=== PATIENT | male | born 1945 | race Caucasian/White ===

== ENCOUNTER → 2024-08-11 08:21 | Outpatient (REF) | payer MEDICARE, SELFPAY | LOC: RAD 08:21 | PROVIDERS: ATTENDING PHYSICIAN Internal Medicine | DX: I73.9 Peripheral vascular disease, unspecified (principal) | CPT/HCPCS: 75635; Q9967 ==

== ENCOUNTER 2024-10-16 17:59 | Emergency (ER) | payer MEDICARE, OTHER, SELFPAY ==
[2024-10-16 18:00] VITALS: BMI 31.7
[2024-10-16 18:02] VITALS: BP 110/74
[2024-10-16 18:04] VITALS: BP 110/74
--- NOTE | 2024-10-16 18:15 | ED.GENMED ---
History of Present Illness
General
Chief Complaint: Overdose Unintentional
Source: patient and ambulance crew
Time Seen by Provider: 10/16/24 18:00
History of Present Illness
History of Present Illness:
79-year-old male presents via EMS from [facility] after being found to be 'unconscious' after receiving a dose of Ativan. Patient was alert and oriented upon EMS arrival. He has no complaints upon my exam however he is a poor
historian. He denies headache nausea lethargy chest pain shortness of breath or fever.
Phy Exam
Physical Exam
Physical Exam:
General: Unkempt male no acute respiratory distress
HEENT: Normocephalic atraumatic mucosa moist
Heart: Regular rate and rhythm no murmurs
Lungs: CTA bilaterally
Abd: soft, nontender, nondistended
Ext: no cyanosis or edema
Neuro: alert, oriented to person only. No facial asymmetry
Course
Orders/Labs/Results
Orders:
Orders
10/16/24 18:21
CR Chest - 2 Views Urgent
Comment:
Reason For Exam: weakness
10/16/24 18:49
COVID-19 Antigen Urgent
Source: Nasal Swab
Complete Blood Count/With Diff Urgent
Comprehensive Metabolic Panel Urgent
Urinalysis Reflex To Culture Urgent
Date Specimen was Collected: 10/16/24
Time Specimen was Collected: 18:29
Urine Microscopic Reflex Cult Urgent
Influenza A+B Rapid Molecular Urgent
[facility]INA Source: Nasal Swab
Specimen Description:
Urine Culture Urgent
BRINA Source: U
Specimen Description:
Date Specimen was Collected: 10/16/24
Time Specimen was Collected: 18:29
Abnormal Lab Results
10/16/24
18:49
WBC 3.4 L 10^3/uL
(4.8-10.8)
RBC 4.54 L 10^6/uL
(4.70-6.10)
Plt Count 125 L 10^3/uL
(130-400)
MPV 10.7 H fL
(7.4-10.4)
Absolute Lymphs (auto) 0.5 L 10^3/uL
(1.2-3.4)
Lymphocytes % 15.5 L %
(20.5-51.1)
Chloride 109 H mmol/L
(98-107)
BUN 22 H mg/dl
(9-20)
Glucose 103 H mg/dl
(70-99)
Total Protein 6.2 L g/dl
(6.3-8.2)
Albumin 3.4 L g/dl
(3.5-5.0)
Urine Bacteria (Reflex) Moderate A
(Negative)
Urine Albumin (Reflex) 2+ A
(Neg - Trace)
10/16/24 18:49
10/16/24 18:49
Vital Signs
Initial and Last Documented VS:
Initial Vital Signs
Temp Pulse Resp BP Pulse Ox
98.5 F 81 18 110/74 95
10/16/24 18:02 10/16/24 18:02 10/16/24 18:02 10/16/24 18:02 10/16/24 18:02
Last Documented Vital Signs
Temp Pulse Resp BP Pulse Ox
98.5 F 84 16 103/74 99
10/16/24 18:02 10/16/24 20:00 10/16/24 20:00 10/16/24 20:00 10/16/24 20:00
MDM/Problems Addressed
Differential Diagnosis Includes:
EMS report was he had he was unconscious after receiving Ativan however I spoke with the nurse at the facility. There was no documentation of him being unresponsive. There was concern on family's behalf as he has been getting more weak over the
past 2 to 3 days. No fever here on assessment but will check basic labs and infectious sources.
*Critical Care Note
Total Time (30-74mins, 75-104mins- exclusive of procedures): Not Applicable
Update Note
Update Note:
Patient evaluated and reviewed studies. Chest x-ray negative moderate bacteria in the urine but no other sign of infection. Will wait for culture with stable vital signs afebrile. Labs reviewed without significant finding. COVID and flu
negative. No indication for admission he is alert here we will send him back to facility
ED Attending Note
-
Portions of this chart may have been created with voice recognition software.� Occasional wrong word or��sound alike� substitutions may have occurred due to the inherent limitations of voice recognition software.
Discharge Plan
Departure
Patient Disposition: Home (Routine Discharge)
Date of Disposition: 10/16/24
Time of Disposition: 21:12
Patient with high blood pressure during this ER visit?: No
Discharge Problem:
Weakness
Instructions: Weakness
Referrals:
Hector Ryder MD [Family Provider] -
Activity Restrictions/Additional Instructions:
Return if needed.
Interventions
Interventions:
*Risk Screen - Suicide Last Done: 10/16/24 18:02
*General Assessment Last Done: 10/16/24 18:02
*Neglect/Abuse Screening Last Done: 10/16/24 18:02
ED- Fall Risk Assessment Last Done: 10/16/24 18:02
ED- Cardiac Assessment Last Done: 10/16/24 18:54
ED- Neurological Assessment Last Done: 10/16/24 18:54
ED-Psychological Assessment Last Done: 10/16/24 18:02
ED- Pulmonary Assessment Last Done: 10/16/24 18:54
Discharge Date and Time
Print Language: CROATIAN
[2024-10-16 18:30] VITALS: BP 105/76
[2024-10-16 19:00] VITALS: BP 91/70
[2024-10-16 19:05] LABS: Urine Albumin 2+ (Neg - Trace); Urine Bilirubin Negative (Negative); Urine Character Cloudy (Clear); Urine Color Yellow; Urine Glucose Negative (Negative); Urine Ketone Negative (Negative); Urine Leukocyte Negative (Negative); Urine Nitrite Negative (Negative); Urine Occult Blood Negative (Negative); Urine Urobilinogen Negative (Neg - 1+)
[2024-10-16 19:08] LABS: % Basophils 0.3 % (0-2); % Eosinophils 2.1 % (0-6); % Immature Granulocytes 0.3 % (0-0.5); % Lymphocytes 15.5 % (20.5-51.1); % Monocytes 8.5 % (1.7-9.3); % Neutrophils 73.3 % (42.2-75.2); Absolute Eosinophils 0.1 10^3/uL (0-0.7); Absolute Lymphocytes 0.5 10^3/uL (1.2-3.4); Absolute Monocytes 0.3 10^3/uL (0.1-0.6); Absolute Neutrophils 2.5 10^3/uL (1.4-6.5); Hematocrit 39.8 % (39.0-52.0); Hemoglobin 13.4 g/dL (13.0-18.0); Mean Corp Hgb Conc. 33.7 g/dL (33.0-37.0); Mean Corpuscular Hgb 29.5 pg (27.0-31.0); Mean Corpuscular Volume 87.7 fL (80.0-94.0); Mean Platelet Volume 10.7 fL (7.4-10.4); Nucleated Red Blood Cells % 0 % (-); Platelet Count 125 10^3/uL (130-400); Red Blood Cell Count 4.54 10^6/uL (4.70-6.10); Red Cell Dist. Width 13.4 % (11.5-14.5); White Blood Cell Count 3.4 10^3/uL (4.8-10.8)
[2024-10-16 19:16] LABS: ALT (SGPT) < 10 U/L (0-50); AST (SGOT) 17 U/L (17-59); Albumin 3.4 g/dl (3.5-5.0); Alkaline Phosphatase 110 U/L (38-126); Blood Urea Nitrogen 22 mg/dl (9-20); Calcium 8.9 mg/dl (8.4-10.2); Carbon Dioxide 26 mmol/L (22-30); Chloride 109 mmol/L (98-107); Estimated Creatinine Clearance 78 ml/min; Glucose 103 mg/dl (70-99); Potassium 3.9 mmol/L (3.5-5.1); Sodium 142 mmol/L (135-145); Total Bilirubin 1.3 mg/dl (0.2-1.3); Total Protein 6.2 g/dl (6.3-8.2); eGFR > 60.00
[2024-10-16 19:20] LABS: COVID-19 Antigen Negative (Negative)
[2024-10-16 20:00] VITALS: BP 103/74
[2024-10-16 20:30] LABS: Urine Squamous Cell >30 /LPF (Few)
[2024-10-16 20:31] LABS: Urine Bacteria Moderate (Negative); Urine Red Blood Cell 0-2 /HPF (0-2)
[2024-10-16 21:49] VITALS: BP 104/86
== END 2024-10-16 21:50 | disposition home or self-care (01) ==
LOC: EMR 17:59
PROVIDERS: Physician Assistant; EMERGENCY PHYSICIAN Emergency Medicine; FAMILY PHYSICIAN Internal Medicine
DX: R53.1 Weakness (principal); R82.71 Bacteriuria
CPT/HCPCS: 99285; 71046; 80053; 81003; 81015; 85025; 87086; 87502; 87811; 93005

== ENCOUNTER → 2025-04-20 09:17 | Outpatient (REF) | payer MEDICARE, OTHER, SELFPAY | LOC: RAD 09:17 | PROVIDERS: ATTENDING PHYSICIAN Surgery Vascular Surgery | DX: I77.9 Disorder of arteries and arterioles, unspecified (principal) | CPT/HCPCS: 93922 ==

== ENCOUNTER 2025-04-22 12:53 | Inpatient (IN) | payer MEDICARE, MEDICAID, SELFPAY ==
[2025-04-22] VITALS (32 sets, daily range): BP systolic 86–161; BP diastolic 57–83; BMI 33.0
[2025-04-22] MEDS: LEVOPHED 250 IV (10:18)
[2025-04-22] MEDS: LEVOPHED IV ×2 (10:18→11:16)
--- NOTE | 2025-04-22 10:20 | ED.GENMED ---
History of Present Illness
General
Chief Complaint: Change in Mental Status
Source: patient and ambulance crew
Exam Limitations: none
Time Seen by Provider: 04/22/25 10:09
Nursing documentation reviewed up to this point in time: agreed with
History of Present Illness
History of Present Illness:
Note:
CHIEF COMPLAINT(S)
Altered mental status and facial droop.
HISTORY OF PRESENT ILLNESS
The patient is a 79-year-old male who was brought in by EMS with altered mental status and facial droop, suggestive of a potential cerebrovascular accident (stroke). Upon EMS arrival, the patient was noted to have significant hypotension with
initial blood pressure readings of 64/40 mmHg. The patient was reportedly bradycardic with a heart rate in the 60s. EMS initiated intravenous fluids and started the patient on norepinephrine at a rate of 0.05 mcg/kg/min to stabilize blood pressure,
which improved the blood pressure to 92% saturation on room air. The patients altered mental status persisted during transport, with a reported [place] Coma Scale of 6. There was an observation of vomitus on the patients facility gown and colostomy
site.
PHYSICAL EXAM
General: Altered mental status, facial droop
Cardiovascular: Hypotension initially 64/40 mmHg, stabilized with norepinephrine.
Neurological: [place] Coma Scale of 6, facial droop noted.
MEDICATIONS
The patient is reportedly on multiple medications including aspirin, acetaminophen, duloxetine, claritin, and tramadol.
PROBLEM LIST
Acute: Altered mental status, hypotension, potential stroke with facial droop
PLAN
- Monitor vital signs, specifically blood pressure and neurological status closely.
- CT scan to evaluate for possible cerebrovascular accident.
- Continue norepinephrine infusion to maintain stable blood pressure.
- Evaluate and manage the patients colostomy site and potential for infection or other complications due to vomitus presence.
- Consider further neurological evaluation following stabilization.
DIFFERENTIAL DIAGNOSIS
The Differential Diagnosis includes, in no particular order and is not limited to:
1. Cerebrovascular accident (stroke)
2. Hypotensive episode
3. Hypoglycemia
4. Sepsis
5. Intracranial hemorrhage
6. Cardiac arrhythmia (e.g., bradycardia)
7. Medication side effect or toxicity
8. Seizure activity
9. Electrolyte imbalance
10. Acute infectious process (e.g., meningitis, encephalitis)
CARE-UPDATE
04/22/25 - 11:22
Patient exhibits hypotension despite negative sepsis markers, supporting evidence of a UTI with a positive result. Cepidem ordered to address infection, while LevaFed administration continues, demonstrating improvement in blood pressure. Plan
involves admission under hospitalist care for further monitoring and management.
CARE-UPDATE
04/22/25 - 13:26
The patients blood pressure improved after administration of IV Leibethid. The patient was able to stabilize somewhat and respond to the treatment by leaning down. IV fluids were administered along with IVepidim. The patient is being admitted for
further evaluation by the hospitalist team. An X-ray revealed no new findings. Continue monitoring for any signs of sepsis.
Disposition:
SUMMARY OF ENCOUNTER
The patient, a 79-year-old male, was brought to the emergency department by EMS with altered mental status and facial droop, indicating a potential cerebrovascular incident. Initial evaluation revealed significant hypotension with blood pressure
readings at 64/40 mmHg and bradycardia with a heart rate in the 60s. EMS initiated intravenous fluids and norepinephrine at a rate of 0.05 mcg/kg/min, improving blood pressure to an acceptable level. The patient had a [place] Coma Scale of 6 upon
evaluation and showed signs of vomiting on his colostomy site. He exhibited symptoms consistent with a urinary tract infection (UTI) and was subsequently diagnosed with sepsis. Treatment included intravenous administration of cephalosporin and
levophed, resulting in improved blood pressure.
DISPOSITION
Admit.
ASSESSMENT
The patient presents with symptoms indicative of sepsis, coupled with a urinary tract infection and initial hypotensive episode.
EMERGENCY TREATMENTS ADMINISTERED
The patient received intravenous cephalosporin (confirmation of exact drug uncertain) and norepinephrine (levophed) to stabilize blood pressure.
MANAGEMENT OF THE PATIENTS CARE WAS DISCUSSED WITH
Hospitalist.
PLAN
The plan includes monitoring vital signs closely with a focus on maintaining stable blood pressure, continued administration of antibiotics for UTI, and norepinephrine for blood pressure stabilization. The patient is admitted for further observation
and management under the care of the hospitalist team.
INDEPENDENT REVIEW OF LABS AND INTERPRETATION OF TESTS
My independent review of urinalysis indicates the presence of a urinary tract infection consistent with sepsis symptoms.
MEDICATION RECONCILIATION
Cephalosporin [exact drug unspecified] administered intravenously.
Norepinephrine administered intravenously for blood pressure stabilization.
MEDICAL DECISION MAKING
- Number and Complexity of Problems Addressed: Chronic conditions affecting care include altered mental status, facial droop, hypotension, and potential sepsis with urinary tract infection. Differential Diagnosis includes cerebrovascular accident,
hypotensive episode, hypoglycemia, sepsis, intracranial hemorrhage, cardiac arrhythmia (bradycardia), medication side effect or toxicity, seizure activity, electrolyte imbalance, and acute infectious processes.
- Data:
Category 1:
Non-emergency department records reviewed.
I reviewed external documents and urinalysis confirming urinary tract infection.
Category 3:
Discussion of management with the hospitalist for continued inpatient care and monitoring.
- Risk:
Decisions regarding diagnostic testing with risks and procedures with intravenous administration of norepinephrine and antibiotics due to sepsis and hypotension. Admission for further care was necessary due to risk of complications.
DIAGNOSIS
Sepsis due to urinary tract infection (UTI) (ICD-10 A41.9).
Hypotension (ICD-10 I95.9).
Phy Exam
Physical Exam
Physical Exam:
.
Sepsis
Sepsis Screening
Sepsis Assessment: Septic Shock
Sepsis Screening: Hypotension, Sustained Hypotension-SBP <90,MAP<65, or SBP decrease 40mmHg or more and Vasopressor support required
Sepsis Screen
Sepsis Screen: Septic Shock
Date: 04/22/25
Time: 12:30
Course
Orders/Labs/Results
Orders:
Orders
04/22/25 Lunch
IDDSI 6 - Soft & Bite Sized
At Your Request: Full Participation
Does patient need a safe tray?: No
Reason for opting out of [employer] order writing: Provider Decision
Liquid Modification: Thin Liquids
Dysphagia Diet: 1999/ CHO Diabetic
04/22/25 10:08
Electrocardiogram (*1) Urgent
Reason for Study: Chest Pain
EKG- Treatment ONCE
04/22/25 10:13
COVID-19 Antigen Urgent
Source: Nasal Swab
Complete Blood Count/With Diff Urgent
Comprehensive Metabolic Panel Urgent
Lactic Acid Urgent
Magnesium Urgent
NT-proBNP Urgent
Troponin I Urgent
Urinalysis Reflex To Culture Urgent
Date Specimen was Collected: 04/22/25
Time Specimen was Collected: 10:10
Urine Microscopic Reflex Cult Urgent
Blood Culture Urgent
[facility] Source: Blood/Venous
Specimen Description:
Date Specimen was Collected: 04/22/25
Time Specimen was Collected: 10:10
Influenza A+B Rapid Molecular Urgent
[facility]INA Source: Nasal Swab
Specimen Description:
Date Specimen was Collected: 04/22/25
Time Specimen was Collected: 10:10
Urine Culture Urgent
BRINA Source: U
Specimen Description:
Date Specimen was Collected: 04/22/25
Time Specimen was Collected: 10:10
04/22/25 10:18
NORepinephrine 4 MG/250 ML [Levophed] 4 mg in 250 ml IV NOW
Initial dose in mcg/min, then titrate:: 4
Titrate to keep:: MAP > 65 mmHg
Titrate by mcg/min:: 1-2 mcg/min
Frequency of titrations (minutes):: 5
Maximum dose in ICU in mcg/min:: 30
Maximum dose in IMU in mcg/min:: 8
Maximum dose in IVU in mcg/min:: 4
Begin to taper infusion when:: Remained at goal for 4hrs
Taper by mcg/min:: 1-2 mcg/min
Frequency of taper (minutes) if patient maintains goal:: 30
Taper to off?: Yes
If infusion off & no longer maintaining goal:: Contact Provider
04/22/25 10:22
CR Chest Portable - 1 View Urgent
Comment:
Reason For Exam: hypotension
Reason Study Needs to be Portable: Patient Unstable
04/22/25 11:18
Cefepime HCl [Maxipime] 2,000 mg IV NOW STA
04/22/25 11:31
Blood Culture Urgent
BRINA Source: Blood/Venous
Specimen Description:
04/22/25 12:36
Admit/Transfer Patient As Directed
Co-Sign Provider:
Level of Care: Inpatient admission
Assign to:: IMU- Intermediate Care
Physician / Group: Erika Dominguez - hospitalists
Diagnosis: shock, UTI
Reason for Hospitalization: shock, UTI - IVF, IV Abx pressors
Expected length of stay greater than two midnights?: Yes
ELOS- Estimated Length of Stay in days: 3
I certify the patient meets the requirements for IP care: Yes
04/22/25 12:37
PRN Pain Medication Management As Directed
May give lesser potent ordered pain med per pt: Yes
preference::
Protocol:: Medication orders for pain may be administered in a
manner that supports deferring to patient preference
when the pt is:
- Requesting an ordered lesser potent pain medication.
Least to most potent pain medications are defined
as: acetaminophen < NSAID < tramadol < opioids
(morphine, oxycodone, hydromorphone).
- Requesting a lesser dose of the same medication IF
ORDERED.
- Requesting a less intrusive route of administration
if both routes are prescribed by the provider (PO <
IV).
04/22/25 12:38
Code Status As Directed
Resuscitation Status: Do not resuscitate
Based on pt advanced directive or healthcare POA form: Yes
DNR Bracelet Application ONCE
04/22/25 12:41
CT Abd/pel Without Iv Or Oral Routine
Comment: UTI, shock
Reason For Exam: evaluate underlying pathology
04/22/25 13:03
0.9% Sodium Chloride 1000 ml [Nss] 1,000 ml IV 100 mls/hr
Acetaminophen [Tylenol] 650 mg PO Q4HPRN PRN MILD PAIN
Bisacodyl [Dulcolax] 10 mg RECTAL [id number] PRN
Dextrose 50%-Water [Dextrose 50% Syringe] 12.5 grams IV [id number] PRN
Docusate W/Senna [Senokot-S] 1 tablet PO BIDPRN PRN
Glucagon [GlucaGen] 1 mg IM PRN PRN
Lorazepam [Ativan] 0.5 mg PO Q6HPRN PRN ANXIETY
Ondansetron Injectable [Zofran] 4 mg IV Q6HPRN PRN
Polyethylene Glycol Powder [Miralax] 17 grams PO DAILYPRN PRN
04/22/25 13:03
Activity As Directed
Activity Level: As Tolerated
Bedside Glucose Monitoring As Directed
Frequency: AC&HS
Additional Instructions:: Change to q6h if pt on TPN, tube feeding or not eating
Vital Signs As Directed
Frequency: Per unit guidelines
Speech Therapy Eval & Treat Routine
Treatment: on dysphagia mech soft diet/thins at [facility]
DX Deep Vein Thrombosis Video Routine
04/22/25 16:00
Buspirone [Buspar] 5 mg PO TID
04/22/25 16:30
Insulin Aspart Corrective Low [Novolog Flexpen-Low Resistance] See Protocol SC AC
04/22/25 18:00
Atorvastatin [Lipitor] 80 mg PO QPM
Enoxaparin Sodium [Lovenox] 40 mg SC QPM
04/22/25 19:00
Cefepime HCl [Maxipime] 2,000 mg IV Q8H
04/22/25 20:00
Gabapentin [Neurontin] 100 mg PO BID
04/22/25 22:00
Finasteride [Proscar] 5 mg PO HS
Lactulose [Duphalac/Chronulac] 20 grams PO HS
Melatonin 3 mg PO HS
04/23/25 06:00
Basic Metabolic Panel IN AM
Complete Blood Count/With Diff IN AM
Glycohemoglobin (HgbA1c) IN AM
04/23/25 08:00
Aspirin Chewable [Low Strength Aspirin] 81 mg PO DAILY
Duloxetine Delayed Release [Cymbalta Delayed Release] 60 mg PO DAILY
Tamsulosin [Flomax] 0.4 mg PO DAILY
04/24/25 06:00
Basic Metabolic Panel IN AM
Complete Blood Count/With Diff IN AM
04/25/25 06:00
Basic Metabolic Panel IN AM
Complete Blood Count/With Diff IN AM
Abnormal Lab Results
04/22/25
10:13
RBC 4.29 L 10^6/uL
(4.70-6.10)
Hgb 12.6 L g/dL
(13.0-18.0)
Hct 37.9 L %
(39.0-52.0)
Chloride 113 H mmol/L
(98-107)
BUN 29 H mg/dl
(9-20)
Total Protein 5.7 L g/dl
(6.3-8.2)
Albumin 3.2 L g/dl
(3.5-5.0)
Ur Occult Blood Reflex 4+ A
(Negative)
Leukocyte Esterase Rfl 3+ A
(Negative)
Urine RBC 16-20 A /HPF
(0-2)
Urine WBC (Reflex) 40-50 A /HPF
(0-5)
Urine Bacteria (Reflex) Many A
(Negative)
Urine Albumin (Reflex) 3+ A
(Neg - Trace)
04/22/25 10:13
04/22/25 10:13
Vital Signs
Initial and Last Documented VS:
Initial Vital Signs
Pulse Resp
59 19
04/22/25 10:09 04/22/25 10:09
Last Documented Vital Signs
Temp Pulse Resp BP Pulse Ox
98.1 F 61 15 115/68 96
04/22/25 10:35 04/22/25 12:34 04/22/25 12:34 04/22/25 13:02 04/22/25 12:34
*Pulse Oximetry
Patient hypoxic: no
*Critical Care Note
Total Time (30-74mins, 75-104mins- exclusive of procedures): 35
comment:
Critical care statement: A total of 35 minutes of critical care time was provided for this patient. This includes management of unstable vital signs, evaluation of the patient at bedside, reviewing the patient's pertinent medical records, discussion
with consultants, review of old EKGs and review of pertinent medical records. This time with separate from time utilized to perform the aforementioned documented procedures
ED Attending Note
-
Portions of this chart may have been created with voice recognition software.� Occasional wrong word or��sound alike� substitutions may have occurred due to the inherent limitations of voice recognition software.
Discharge Plan
Departure
Patient Disposition: Admit
Date of Disposition: 04/22/25
Time of Disposition: 11:18
Admit to: IMU
Presentation/result/management discussed w/ accepting MD/DO: Hospitalist
Patient with high blood pressure during this ER visit?: Yes
Condition: Fair
Discharge Problem:
Acute UTI (urinary tract infection), Acute hypotension, Sepsis
Interventions
Interventions:
*Risk Screen - Suicide Last Done: 04/22/25 10:35
*General Assessment Last Done: 04/22/25 10:35
*Neglect/Abuse Screening Last Done: 04/22/25 10:35
*ED- Fall Risk Assessment Last Done: 04/22/25 10:35
*ED COVID-19 Vaccine History Last Done: 04/22/25 10:35
ED- Pulmonary Assessment Last Done: 04/22/25 10:35
ED-Psychological Assessment Last Done: 04/22/25 10:35
ED- Neurological Assessment Last Done: 04/22/25 10:35
ED- Cardiac Assessment Last Done: 04/22/25 10:35
ED Swallowing Screen Last Done: 04/22/25 10:35
[2025-04-22 10:27] LABS: Hematocrit 37.9 % (39.0-52.0); Hemoglobin 12.6 g/dL (13.0-18.0); Mean Corp Hgb Conc. 33.2 g/dL (33.0-37.0); Mean Corpuscular Volume 88.3 fL (80.0-94.0); Nucleated Red Blood Cells % 0 % (-); Platelet Count 155 10^3/uL (130-400); Red Cell Dist. Width 14.1 % (11.5-14.5)
[2025-04-22 10:36] LABS: Urine Character Cloudy (Clear)
[2025-04-22 10:52] LABS: ALT (SGPT) 13 U/L (0-50); AST (SGOT) 18 U/L (17-59); Albumin 3.2 g/dl (3.5-5.0); Alkaline Phosphatase 73 U/L (38-126); Blood Urea Nitrogen 29 mg/dl (9-20); Calcium 8.6 mg/dl (8.4-10.2); Carbon Dioxide 25 mmol/L (22-30); Chloride 113 mmol/L (98-107); Estimated Creatinine Clearance 55 ml/min; Glucose 98 mg/dl (70-99); Magnesium 1.9 mg/dl (1.6-2.3); Potassium 4.3 mmol/L (3.5-5.1); Sodium 142 mmol/L (135-145); Total Protein 5.7 g/dl (6.3-8.2); Troponin I < 0.012 ng/ml; eGFR > 60.00
[2025-04-22 10:54] LABS: COVID-19 Antigen Negative (Negative)
[2025-04-22 10:59] LABS: Urine Squamous Cell 16-20 /LPF (Few); Urine Urothelial Cell 0-2 /LPF (FEW)
[2025-04-22 11:00] LABS: Urine Red Blood Cell 16-20 /HPF (0-2); Urine White Cell 40-50 /HPF (0-5)
[2025-04-22] MEDS: MAXIPIME 2000 MG IV ×2 (11:53→22:02)
--- NOTE | 2025-04-22 12:24 | CM ---
Initial assessment completed in ED. Patient presenting w/ change in mental status. Patient admitted from [facility].
Spoke w/ [facility], confirmed that patient is a LTC resident w/ a bed hold. Patient is total care, bedbound, ever lift for transfers.
PCP is Dr. Ryder
[facility]armacy: [facility]
Patient will need ambulance transport at d/c
Plan: Return to [facility]
--- NOTE | 2025-04-22 12:24 | HPS.HSE ---
Family Physician
-
Family Physician: INTERVIEWE UNKNOWN - PT NOT
Chief Complaint
-
hypotension
History of Present Illness
79 y/o M, hx of CAD, PVD, hx of PE, type 2 DM, HLD presenting from [facility] with transient change in mental status and hypotension to 60s. EMS was called and placed patient on Levophed. He was evaluated in ER and found to have UTI And
concern for early sepsis; patient was more alert and did report burning with urination. No other complaints. Currently Levophed at 1 mcg/min. Cefepime given. Patient admitted.
Medical History
Past Medical History
Past Medical History: Reports Other ( CAD, PVD, hx of PE, type 2 DM, HLD, hx of CVA, HTN)
Past Surgical History: Reports None
Social History
Tobacco: Non-smoker
Alcohol: None
Drug: None
Personal:
Living: Prison
Employment: Disabled
Family History
Family History: Not pertinent
Allergies / Home Medications
Allergies reflects when Allergies were last updated in [facility].
Home Medications with original date entered in [facility]
Allergy/Medication List:
Allergies
Allergy/AdvReac Type Severity Reaction Status Date / Time
No Known Allergies Allergy Unverified 10/16/24 18:09
Home Medications
acetaminophen 325 mg tablet (Tylenol) 650 mg PO Q4HPRN PRN MILD PAIN 04/22/25
ascorbic acid (vitamin C) 500 mg tablet (Vitamin C) 500 mg PO BID Supplement 04/22/25
aspirin 81 mg chewable tablet 81 mg PO DAILY Heart Disease/Condition 04/22/25
atorvastatin 80 mg tablet (Lipitor) 80 mg PO QPM High Cholesterol 04/22/25
bisacodyl 10 mg rectal suppository (Dulcolax (bisacodyl)) 10 mg NE DAILYPRN PRN IF NO BM AFTR MOM 04/22/25
buspirone 5 mg tablet 5 mg PO TID Mental Health/Anxiety 04/22/25
cholecalciferol (vitamin D3) 50 mcg (2,000 unit) tablet (Vitamin D3) 50 mcg PO DAILY Supplement 04/22/25
duloxetine 60 mg capsule,delayed release 60 mg PO DAILY Mental Health/Anxiety 04/22/25
finasteride 5 mg tablet 5 mg PO HS bph 04/22/25
gabapentin 100 mg capsule 100 mg PO BID Pain 04/22/25
ibuprofen 800 mg tablet 800 mg PO [id number] PRN ARTHRITIC PAIN 04/22/25
lactulose 10 gram/15 mL oral solution 20 g PO HS Constipation 04/22/25
loratadine 10 mg tablet (Claritin) 10 mg PO DAILY Allergies 04/22/25
lorazepam 0.5 mg tablet 0.5 mg PO Q6HPRN PRN ANXIETY 04/22/25
magnesium hydroxide 400 mg/5 mL oral suspension (Milk of Magnesia) 2,400 mg PO DAILYPRN PRN IF NO BM BY 3RD DAY 04/22/25
melatonin 3 mg tablet 3 mg PO HS Sleep 04/22/25
omega-3 fatty acids-fish oil 684 mg-1,200 mg capsule,delayed release 1 cap PO DAILY Supplement 04/22/25
sodium phosphates 19 gram-7 gram/118 mL enema (Fleet Enema) 118 ml NE [id number] PRN IF NO BM AFTR DULOLCAX 04/22/25
tamsulosin 0.4 mg capsule (Flomax) 0.4 mg PO DAILY Urinary Issue 04/22/25
tramadol 50 mg tablet 50 mg PO BIDPRN PRN MODERATE PAIN 04/22/25
Review of Systems
-
A 12 point ROS was completed and negative except as noted: Yes
Physical Exam
Vital Signs
Vital Signs
Temp Pulse Resp BP Pulse Ox
98.1 F 50 16 123/66 96
04/22/25 10:35 04/22/25 10:35 04/22/25 10:35 04/22/25 11:23 04/22/25 10:35
Physical Exam
General: No Apparent Distress
HEENT: NormoCephalic and Anicteric
Respiratory: Clear; No Wheezes
Cardiac: S1/S2 and Regular Rhythm
GI: Soft
Neuro: AO x 3 and Other (residual Left sided weakness)
Psych: Calm
Laboratory Results
-
04/22/25 10:13
04/22/25 10:13
Laboratory Results
Lactic Acid 1.0 mmol/L (0.7-2.0) 04/22/25 10:13
Total Bilirubin 0.8 mg/dl (0.2-1.3) 04/22/25 10:13
AST 18 U/L (17-59) 04/22/25 10:13
ALT 13 U/L (0-50) 04/22/25 10:13
Alkaline Phosphatase 73 U/L (38-126) 04/22/25 10:13
Troponin I < 0.012 ng/ml 04/22/25 10:13
Data Reviewed
-
Lab Data: Labs Reviewed by me
Impression/Plan
-
Assessment:
Shock, suspected early sepsis picture (although sepsis biomarkers negative) vs hypovolemic
UTI in Male
- continue IVF for suspected sepsis protocol
- on Levophed; wean as able. IMU admit.
- Cefepime, day 1 pending urine/blood cultures
- CT abd/pelv noncontrast to evaluate underlying pathology
Hx of ASCVD (CAD, PVD, hx of CVA with asphasia, weakness)
Hx of Essential HTN
- continue aspirin/Statin
- hx of dysphagia - ST eval
Type 2 DM
- diet controlled
- SSI coverage
- check A1c
hx of PE
HLD - statin
Anxiety/depression
- continue home psych meds
BPH - continue meds
DVT ppx: Lovenox
Code: DNR/DNI per records
--- NOTE | 2025-04-22 13:05 | EDRN ---
this RN processed the admission orders and this RN called pharmacy and notified them, this RN also called to order a dinner tray for the pt for later
--- NOTE | 2025-04-22 14:37 | EDRN ---
speech therapy currently at the pts bedside
[2025-04-22] MEDS: NSS 1000 IV ×2 (14:39→22:06)
--- NOTE | 2025-04-22 14:40 | PTOTSP ---
Speech Language Pathology
Pt seen for clinical bedside swallow evaluation. On mechanical soft solids and thin liquids at baseline. Pt stated he has been on this diet since his stroke a few years ago, but stated that he has a family member who visits and brings him
cheesesteaks weekly, which he stated he tolerates well. Pt is edentulous. Stated he recently got dentures, but he is still getting used to them. P.O. trials of puree, regular solids, and thin liquids. Slightly prolonged mastication noted with no
oral residue. Brief throat clear post regular solids. No overt coughing. CXR clear, and WBC WNL. No prior APARTMENT MANAGER at . CXR was completed October 2024 with no acute findings, so does not appear pt has hx of PNA.
Recommend:
(1) Baseline diet of IDDSI Level 6 (soft/bite-sized) and thin liquids
(2) General aspiration precautions
(3) Meds as tolerated
(4) APARTMENT MANAGER to sign off. Please reconsult as indicated
--- NOTE | 2025-04-22 17:19 | W.PN.UPDATE ---
Update Note
Progress Note Update
CT with below findings:
1. 5 mm calculus within the distal right ureter with minimal right hydronephrosis and hydroureter.
2. 9 mm calculus within the upper pole of the left kidney. There is mild left hydronephrosis and hydroureter with no obstructing calculi identified.
D/w Urology Dr. Pacheco. Patient afebrile, no leukocytosis. Able to wean off pressors with BP >120 presently. Will downgrade diet to clears and keep NPO past midnight for stent tomorrow. If patient clinically declines (Fever, sepsis, hypotension etc)
- please call Dr. Pacheco for more urgent intervention. Reviewed with nursing as well.
--- NOTE | 2025-04-22 17:21 | EDRN ---
the pt was downgraded to Telemetry by Dr. Dominguez
--- NOTE | 2025-04-22 18:08 | EDRN ---
this RN called the receiving unit and notified them that paper report was going to be tubed up
--- NOTE | 2025-04-22 19:15 | EDRN ---
pulse has not been 0, when pulse was reading 0 it was 'poor limb lead quality', provider was notified and concurred
[2025-04-22] MEDS: NOVOLOG FLEXPEN-LOW RESISTANCE SC (21:00)
[2025-04-22] MEDS: BUSPAR PO (21:00)
[2025-04-22] MEDS: LIPITOR PO (21:01)
[2025-04-22] MEDS: LOVENOX SC (21:01)
[2025-04-22 21:58] LABS: Glucose - Point of Care 123 mg/dl (70-99)
[2025-04-22] MEDS: STERILE WATER FOR INJECTION 10 ML IV (22:01)
[2025-04-22] MEDS: BUSPAR 5 MG PO (22:02)
[2025-04-22] MEDS: NEURONTIN 100 MG PO (22:03)
[2025-04-22] MEDS: DUPHALAC/CHRONULAC 20 GRAMS PO (22:03)
[2025-04-22] MEDS: MELATONIN 3 MG PO (22:03)
[2025-04-22] MEDS: PROSCAR 5 MG PO (22:07)
[2025-04-23] VITALS (15 sets, daily range): BP systolic 74–136; BP diastolic 34–72; BMI 33.0
[2025-04-23] MEDS: MAXIPIME 2000 MG IV ×3 (02:54→18:08)
[2025-04-23] MEDS: STERILE WATER FOR INJECTION 10 ML IV ×3 (02:54→18:08)
[2025-04-23 06:35] LABS: Hematocrit 34.7 % (39.0-52.0); Hemoglobin 11.8 g/dL (13.0-18.0); Mean Corp Hgb Conc. 34.0 g/dL (33.0-37.0); Mean Corpuscular Volume 88.7 fL (80.0-94.0); Nucleated Red Blood Cells % 0 % (-); Platelet Count 128 10^3/uL (130-400); Red Cell Dist. Width 13.6 % (11.5-14.5)
[2025-04-23 06:49] LABS: Blood Urea Nitrogen 28 mg/dl (9-20); Calcium 8.3 mg/dl (8.4-10.2); Carbon Dioxide 22 mmol/L (22-30); Chloride 116 mmol/L (98-107); Estimated Creatinine Clearance 73 ml/min; Glucose 95 mg/dl (70-99); Potassium 3.9 mmol/L (3.5-5.1); Sodium 142 mmol/L (135-145); eGFR > 60.00
--- NOTE | 2025-04-23 08:00 | W.SUR.PREOP ---
Pre-Operative Surgical Note
-
I have examined this patient prior to the performance of the scheduled procedure.
The patient's condition is unchanged from the time of the current History and
Physical and the patient is able to undergo the scheduled procedure.
Obstructing distal right ureteral stone.
cUTI - afebrile, no leukocytosis, renal function WNL.
UA indicative of UTI (UCx/BCx pending).
Initially hypotensive in ED requiring vasopressors - weaned w/ SBPs >120.
Given hemodynamic stability, pt kept NPO for OR intervention o/n vs. this AM.
Plan
- Continue IV antibiotics, UCx/BCxs pending
- To OR this AM for cysto + right stent
- Surgical consent will be signed in preop holding
D/w Hospitalist.
[2025-04-23 08:12] LABS: Glucose - Point of Care 101 mg/dl (70-99)
[2025-04-23] MEDS: NOVOLOG FLEXPEN-LOW RESISTANCE SC ×3 (08:33→15:47)
[2025-04-23] MEDS: CYMBALTA DELAYED RELEASE 60 MG PO (08:33)
[2025-04-23] MEDS: FLOMAX 0.4 MG PO (08:33)
[2025-04-23] MEDS: BUSPAR 5 MG PO ×3 (08:34→21:29)
[2025-04-23] MEDS: LOW STRENGTH ASPIRIN 81 MG PO (08:34)
[2025-04-23] MEDS: NEURONTIN 100 MG PO ×2 (08:34→21:29)
--- NOTE | 2025-04-23 08:54 | W.PN.HOSP.TC ---
Today's Communication/Plan
-
for cysto and stenting this AM with Urology
continue IVF, IV Abx
d/w Family - COLETTE Herring
Assessment / Plan
Assessment / Plan
Assessment:
Shock, suspected early sepsis picture (although sepsis biomarkers negative) vs hypovolemic
complicated UTI in Male
- continue IVF, BP stable. Weaned off Levophed 3 hours after admission
- continue cefepime, day 2 pending urine/blood cultures
- CT abd/pelv: 5 mm calculus within the distal right ureter with minimal right hydronephrosis and hydroureter.
- Urology: for cysto and stenting this AM
Hx of ASCVD (CAD, PVD, hx of CVA with asphasia, weakness)
Hx of Essential HTN
- continue aspirin/Statin
- hx of dysphagia - ST eval
Type 2 DM
- diet controlled
- SSI coverage
- A1c: pending
hx of PE
HLD - statin
Anxiety/depression
- continue home psych meds
BPH - continue meds
DVT ppx: Lovenox
Code: DNR/DNI per records
Anticipated Discharge: > 48 hours
Subjective/Interval History
-
Date of Service: April 23, 2025
admitted yesterday on pressors but was able to wean off a few hours after admission
afebrile overnight, HD stable
feels comfortable
Objective Data
-
Labs:
Laboratory Results
04/23/25 04/23/25
06:00 06:01
WBC 4.5 L
Hgb 11.8 L
Hct 34.7 L
Plt Count 128 L
Sodium 142
Potassium 3.9
Chloride 116 H
Carbon Dioxide 22
BUN 28 H
Creatinine 0.9
Glucose 95
Calcium 8.3 L
Vital Signs:
Vital Signs
Temp Pulse Resp BP Pulse Ox
97.9 F 54 14 136/62 97
04/23/25 07:34 04/23/25 07:34 04/23/25 07:34 04/23/25 07:34 04/23/25 07:34
Physical Exam
-
General: No Apparent Distress
HEENT: Normocephalic and Atraumatic
Respiratory: Negative Wheezes
Cardiac: Regular Rhythm and S1/S2
GI: Soft
Genito-urinary: No Costovertebral Tender
Neuro: AO x 3
Psych: Calm
Data Reviewed
-
Total Time Spent with Patient (in minutes): 41
Labs: Labs Reviewed by me
[2025-04-23 11:11] LABS: Glycohemoglobin (HgbA1c) 5.2 % (4.0-5.6)
[2025-04-23 11:43] LABS: Glucose - Point of Care 76 mg/dl (70-99)
--- NOTE | 2025-04-23 12:25 | CONS.URO ---
Consultation
-
Date/Time Consultation Requested: 04/22/25
Date/Time Consultation Performed: 04/22/25
Requesting Provider: ED
Performing Provider: Tara
Reason for Consultation: cUTI, obstructing right ureteral stone
Medical History
History of Present Illness
Of note - patient is a poor historian.
79M w/ extensive medical co-morbidities presenting from [facility] with mental status changes and hypotension (SBPs 60s).
Started on Levophed en route to [facility] ED.
Noted to have UTI based on UA findings w/ concerns for evolving urosepsis.
Weaned off vasopressor, IV fluids initiated, IV Cefepime started.
CT demonstrated obstructing 5 mm right ureteral stone w/ hydronephrosis.
Past Medical History
Past Medical History: CAD, CVA, HTN, NIDDM and Other (HLD, PVD, h/o PE)
Past Surgical History: None
Social History
Alcohol: None
Drug: None
Personal:
Living: Correction
Employment: Disabled
Family History
Family History: Reviewed & Not Pertinent
Allergies/Home Medications
Allergies
Allergy/AdvReac Type Severity Reaction Status Date / Time
No Known Allergies Allergy Unverified 10/16/24 18:09
Home Medications
�Medication �Instructions �Recorded �Confirmed �Type
acetaminophen 325 mg tablet 650 mg PO Q4HPRN PRN MILD PAIN 04/22/25 04/22/25 History
(Tylenol)
ascorbic acid (vitamin C) 500 mg 500 mg PO BID Supplement 04/22/25 04/22/25 History
tablet (Vitamin C)
aspirin 81 mg chewable tablet 81 mg PO DAILY Heart 04/22/25 04/22/25 History
Disease/Condition
atorvastatin 80 mg tablet (Lipitor) 80 mg PO QPM High Cholesterol 04/22/25 04/22/25 History
bisacodyl 10 mg rectal suppository 10 mg CA DAILYPRN PRN IF NO BM 04/22/25 04/22/25 History
(Dulcolax (bisacodyl)) AFTR MOM
buspirone 5 mg tablet 5 mg PO TID Mental Health/Anxiety 04/22/25 04/22/25 History
cholecalciferol (vitamin D3) 50 50 mcg PO DAILY Supplement 04/22/25 04/22/25 History
mcg (2,000 unit) tablet (Vitamin
D3)
duloxetine 60 mg capsule,delayed 60 mg PO DAILY Mental 04/22/25 04/22/25 History
release Health/Anxiety
finasteride 5 mg tablet 5 mg PO HS bph 04/22/25 04/22/25 History
gabapentin 100 mg capsule 100 mg PO BID Pain 04/22/25 04/22/25 History
ibuprofen 800 mg tablet 800 mg PO [id number] PRN ARTHRITIC 04/22/25 04/22/25 History
PAIN
lactulose 10 gram/15 mL oral 20 g PO HS Constipation 04/22/25 04/22/25 History
solution
loratadine 10 mg tablet (Claritin) 10 mg PO DAILY Allergies 04/22/25 04/22/25 History
lorazepam 0.5 mg tablet 0.5 mg PO Q6HPRN PRN ANXIETY 04/22/25 04/22/25 History
magnesium hydroxide 400 mg/5 mL 2,400 mg PO DAILYPRN PRN IF NO BM 04/22/25 04/22/25 History
oral suspension (Milk of Magnesia) BY 3RD DAY
melatonin 3 mg tablet 3 mg PO HS Sleep 04/22/25 04/22/25 History
omega-3 fatty acids-fish oil 684 1 cap PO DAILY Supplement 04/22/25 04/22/25 History
mg-1,200 mg capsule,delayed release
sodium phosphates 19 gram-7 118 ml CA [id number] PRN IF NO BM 04/22/25 04/22/25 History
gram/118 mL enema (Fleet Enema) AFTR DULOLCAX
tamsulosin 0.4 mg capsule (Flomax) 0.4 mg PO DAILY Urinary Issue 04/22/25 04/22/25 History
tramadol 50 mg tablet 50 mg PO BIDPRN PRN MODERATE PAIN 04/22/25 04/22/25 History
Review of Systems
-
History Source: Patient and Family
A 12 point Review of Systems was completed except as noted: Yes
Physical Exam
Vital Signs
Vital Signs
Temp Pulse Resp BP Pulse Ox
97.9 F 63 14 105/55 97
04/23/25 10:55 04/23/25 10:55 04/23/25 10:55 04/23/25 10:55 04/23/25 10:55
Lab / Testing Results
Laboratory Results
04/23/25 06:01
04/23/25 06:00
Physical Exam
General: No Apparent Distress
HEENT: Normocephalic and Anicteric
Respiratory: Non Labored Respirations
Cardiac: Regular Rhythm
Breast: N/A
GI: Soft, Non Tender and Non Distended
Rectal: Deferred by Provider
Genito-urinary: No Costovertebral Tend
Musculoskeletal: No Edema
Skin: Warm and Dry
Neuro: Awake, Oriented and Nonfocal/Grossly Intact
Hematologic/Lymphatic: No Lymphadenopathy
Psych: Calm and Confused
Assessment / Plan
-
cUTI
Obstructing right ureteral stone
WBC WNL
Cr WNL
UA grossly indicative of UTI
CT imaging => 6-7 mm distal right ureteral stone w/ hydronephrosis
- Continue IV antibiotics
- To OR for cystoscopy + right stent placement
- Surgical consent obtained from sister (HELEN Herring)
- Plan for definitive stone treatment as outpatient in 2-3 weeks
D/w sister Nevaeh ADAMES).
D/w Hospitalist.
Data Reviewed
-
Total Time Spent with Patient (in minutes): 45
CT Scan: Image personally visualized and interpreted, Report Reviewed by Me, Discussed with Physician, Discussed with Patient and Discussed with Family
Lab Data: Labs Reviewed, Discussed with Physician, Discussed with Patient and Discussed with Family
Old Records: Reviewed
--- NOTE | 2025-04-23 12:58 | W.IMMPOSTOP ---
Surgical Immed Post Op Note
-
Primary Surgeon: Tara
Pre-op Diagnosis: cUTI, obstructing distal right ureteral stone
Post-op Diagnosis: Same
Procedure Performed: cysto, right RGP, right stent placement
Anesthesia Type: LMA
Specimen / Cultures: None/None
Estimated Blood Loss: Negligible
Drains: 6Fr x 24 cm JJ right ureteral stent
Complications: None
Operative Findings:
Significant pus in bladder - evacuated and irrigated prior to identification of right UO (no efflux noted).
Final KUB and cysto confirming appropriate right stent position.
Normal efflux of urine from left UO.
Sister (Nevaeh) updated post-op via telephone.
[2025-04-23 13:26] LABS: Glucose - Point of Care 87 mg/dl (70-99)
--- NOTE | 2025-04-23 14:12 | PTCARENOTE ---
Pt. heading to OR this AM. report called to PACU regarding pt., this nurse and tech cleaned pt. prior to transport of urine, colostomy with no need to be emptied. This nurse and a tech transported down to PACU. Will continue with ongoing plan of
care.
[2025-04-23 15:47] LABS: Glucose - Point of Care 96 mg/dl (70-99)
[2025-04-23] MEDS: LIPITOR 80 MG PO (18:08)
[2025-04-23] MEDS: LOVENOX 40 MG SC (18:08)
[2025-04-23 21:26] LABS: Hepatitis C Antibody Negative (Negative)
[2025-04-23] MEDS: PROSCAR 5 MG PO (21:29)
[2025-04-23] MEDS: MELATONIN 3 MG PO (21:29)
[2025-04-23] MEDS: DUPHALAC/CHRONULAC PO (21:34)
[2025-04-23 22:09] LABS: Glucose - Point of Care 236 mg/dl (70-99)
[2025-04-24] MEDS: MAXIPIME 2000 MG IV ×3 (03:19→18:12)
[2025-04-24] MEDS: STERILE WATER FOR INJECTION 10 ML IV ×3 (03:19→18:13)
[2025-04-24 03:28] VITALS: BP 104/49
[2025-04-24 07:39] LABS: Hematocrit 37.7 % (39.0-52.0); Hemoglobin 12.6 g/dL (13.0-18.0); Mean Corp Hgb Conc. 33.4 g/dL (33.0-37.0); Mean Corpuscular Volume 88.1 fL (80.0-94.0); Nucleated Red Blood Cells % 0 % (-); Platelet Count 116 10^3/uL (130-400); Red Cell Dist. Width 13.6 % (11.5-14.5)
[2025-04-24 07:51] LABS: Glucose - Point of Care 141 mg/dl (70-99)
[2025-04-24 07:55] LABS: Blood Urea Nitrogen 32 mg/dl (9-20); Calcium 8.8 mg/dl (8.4-10.2); Carbon Dioxide 21 mmol/L (22-30); Chloride 114 mmol/L (98-107); Estimated Creatinine Clearance 82 ml/min; Glucose 143 mg/dl (70-99); Potassium 4.2 mmol/L (3.5-5.1); Sodium 142 mmol/L (135-145); eGFR > 60.00
[2025-04-24 08:01] VITALS: BP 103/62
[2025-04-24] MEDS: NOVOLOG FLEXPEN-LOW RESISTANCE SC ×3 (08:07→17:00)
[2025-04-24] MEDS: NEURONTIN 100 MG PO ×2 (08:08→22:48)
[2025-04-24] MEDS: FLOMAX 0.4 MG PO (08:09)
[2025-04-24] MEDS: CYMBALTA DELAYED RELEASE 60 MG PO (08:09)
[2025-04-24] MEDS: LOW STRENGTH ASPIRIN 81 MG PO (08:09)
[2025-04-24] MEDS: BUSPAR 5 MG PO ×3 (08:09→22:48)
--- NOTE | 2025-04-24 09:01 | W.PN.URO.CBU ---
Today's Communication / Plan
-
Continue IV abx pending UCx results
Will need outpatient F/U for preop visit in 1-2 weeks to schedule definitive stone surgery
Sister (Nevaeh, HELEN) updated on post-op course.
Assessment / Plan
-
cUTI
Obstructing distal right ureteral stone
Pyocystis
04/23: s/p cysto/bladder irrigation + right RGP/stent placement
UA 40-50 WBCs, +RBCs, many bacteria
UCx pending
BCx NG
Diagnosis
-
Date of Service: April 24, 2025
-
Patient Diagnosis:
cUTI
Obstructing distal right ureteral stone
Pyocystis
Post Op Day:
04/23: s/p cysto/bladder irrigation + right RGP/stent placement
Subjective
-
Tolerating diet.
Voiding w/o difficulty.
Objective
-
Vital Signs
Temp Pulse Resp BP Pulse Ox
97.7 F 60 16 103/62 99
04/24/25 08:01 04/24/25 08:01 04/24/25 08:01 04/24/25 08:01 04/24/25 08:01
Intake and Output
04/23/25 04/24/25 04/25/25
06:59 06:59 06:59
Intake Total 780 / 780
Balance 780 / 780
Intake:
Oral fluids 480 / 480
IV fluids (Total) 300 / 300
Normosol 300 / 300
Other:
How many times incontinent 1
SMALL amount urine
How many times incontinent 2
MODERATE amount urine
How many times incontinent 1
SATURATED amount urine
Number of unmeasured liquid
stools
Colostomy 50
Laboratory Results
04/24/25 06:21
04/24/25 06:21
Physical Exam
-
General - well developed, well nourished, no acute distress
Abdomen - soft, non-tender
Skin - warm & dry with no rash
Neuro - awake, mild confusion, no motor deficits
Extremities - no clubbing, no cyanosis, no edema
Care Review
Data Reviewed
Discussed with: Hospitalist and Family
CT Scan: Report Pers Reviewed and Image Pers Reviewed
Total Time Spent with Patient (in minutes): 25
[2025-04-24 11:37] VITALS: BP 123/62
--- NOTE | 2025-04-24 11:52 | W.PN.HOSP.TC ---
Today's Communication/Plan
-
1 further liter of saline today
continue Cefepime, day 3 pending final cultures
follow Urology recs
Sister in law Anayeli Herring - updated
Assessment / Plan
Assessment / Plan
Assessment:
Shock, suspected early sepsis picture (although sepsis biomarkers negative) vs hypovolemic
complicated UTI in Male
- continue IVF x 24 hours further. BP stable. Weaned off Levophed 3 hours after admission.
- CT abd/pelv: 5 mm calculus within the distal right ureter with minimal right hydronephrosis and hydroureter.
- Urology: s/p cysto/bladder irrigation + right RGP/stent placement 04/23. Will need outpatient F/U for preop visit in 1-2 weeks to schedule definitive stone surgery
- continue cefepime, day 3. Urine culture with Proteus. Bcx NGTD
Hx of ASCVD (CAD, PVD, hx of CVA with asphasia, weakness)
Hx of Essential HTN
- continue aspirin/Statin
- hx of dysphagia - ST evaluation appreciated. IDDSI 6 diet
Type 2 DM
- diet controlled
- SSI coverage
- A1c: 5.2
hx of PE
HLD - statin
Anxiety/depression
- continue home psych meds
BPH - continue meds
DVT ppx: Lovenox
Code: DNR/DNI per records
Anticipated Discharge: 24 - 48 hours
Subjective/Interval History
-
Date of Service: April 24, 2025
resting comfortably, no complaints at present
Objective Data
-
Labs:
Laboratory Results
04/24/25
06:21
WBC 2.8 L
Hgb 12.6 L
Hct 37.7 L
Plt Count 116 L
Sodium 142
Potassium 4.2
Chloride 114 H
Carbon Dioxide 21 L
BUN 32 H
Creatinine 0.8
Glucose 143 H
Calcium 8.8
Vital Signs:
Vital Signs
Temp Pulse Resp BP Pulse Ox
97.8 F 62 16 123/62 99
04/24/25 11:37 04/24/25 11:37 04/24/25 11:37 04/24/25 11:37 04/24/25 11:37
I&O
04/23/25 04/24/25 04/25/25
06:59 06:59 06:59
Intake Total 780 / 780
Balance 780 / 780
Physical Exam
-
General: Well Developed and Well Nourished
HEENT: Normocephalic and Atraumatic
Respiratory: Negative Wheezes
Cardiac: Regular Rhythm and S1/S2
GI: Soft
Neuro: AO x 3
Psych: Calm
Data Reviewed
-
Total Time Spent with Patient (in minutes): 42
Labs: Labs Reviewed by me
[2025-04-24 12:13] LABS: Glucose - Point of Care 147 mg/dl (70-99)
[2025-04-24] MEDS: NSS 1000 IV (12:47)
[2025-04-24 15:04] VITALS: BP 131/98
[2025-04-24 16:51] LABS: Glucose - Point of Care 111 mg/dl (70-99)
[2025-04-24] MEDS: LIPITOR 80 MG PO (18:12)
[2025-04-24] MEDS: LOVENOX 40 MG SC (18:13)
[2025-04-24] MEDS: ATIVAN 0.5 MG PO (18:36)
[2025-04-24 19:13] VITALS: BP 144/93
[2025-04-24 21:49] LABS: Glucose - Point of Care 113 mg/dl (70-99)
[2025-04-24] MEDS: DUPHALAC/CHRONULAC 20 GRAMS PO (22:49)
[2025-04-24] MEDS: MELATONIN 3 MG PO (22:49)
[2025-04-24] MEDS: PROSCAR 5 MG PO (22:50)
[2025-04-24 23:52] VITALS: BP 101/49
[2025-04-25] MEDS: STERILE WATER FOR INJECTION 10 ML IV ×2 (02:48→10:35)
[2025-04-25] MEDS: MAXIPIME 2000 MG IV ×2 (02:48→10:35)
[2025-04-25 03:32] VITALS: BP 118/74
[2025-04-25] MEDS: CYMBALTA DELAYED RELEASE 60 MG PO (08:03)
[2025-04-25] MEDS: FLOMAX 0.4 MG PO (08:03)
[2025-04-25] MEDS: LOW STRENGTH ASPIRIN 81 MG PO (08:03)
[2025-04-25] MEDS: BUSPAR 5 MG PO (08:03)
[2025-04-25] MEDS: NEURONTIN 100 MG PO (08:03)
[2025-04-25 08:16] LABS: Glucose - Point of Care 105 mg/dl (70-99)
[2025-04-25] MEDS: NOVOLOG FLEXPEN-LOW RESISTANCE SC (08:21)
[2025-04-25 08:25] VITALS: BP 137/71
[2025-04-25 08:43] LABS: Hematocrit 35.2 % (39.0-52.0); Hemoglobin 11.7 g/dL (13.0-18.0); Mean Corp Hgb Conc. 33.2 g/dL (33.0-37.0); Mean Corpuscular Volume 88.7 fL (80.0-94.0); Nucleated Red Blood Cells % 0 % (-); Platelet Count 97 10^3/uL (130-400); Red Cell Dist. Width 13.7 % (11.5-14.5)
[2025-04-25 09:07] LABS: Blood Urea Nitrogen 30 mg/dl (9-20); Calcium 8.4 mg/dl (8.4-10.2); Carbon Dioxide 21 mmol/L (22-30); Chloride 116 mmol/L (98-107); Estimated Creatinine Clearance 73 ml/min; Glucose 100 mg/dl (70-99); Potassium 4.6 mmol/L (3.5-5.1); Sodium 141 mmol/L (135-145); eGFR > 60.00
[2025-04-25 11:36] LABS: Glucose - Point of Care 166 mg/dl (70-99)
[2025-04-25 11:49] VITALS: BP 104/50
[2025-04-25] MEDS: NOVOLOG FLEXPEN-LOW RESISTANCE 1 UNITS SC (12:16)
--- NOTE | 2025-04-25 12:45 | CM ---
MD indicated pt ready for discharge . Discharge order entered.
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
Referral placed in care port.
Spoke with sister Nevaeh [phone]. IMM explained and she agrees with discharge back to [facility] today .
Nevaeh requested a call from . notified of request via TT.
Nevaeh requested Ambulance . Medical [facility] for completed.Pt Wilfredo lift and hemiparesis.
[facility]
Report [phone]
fax [phone]
PLAN To [facility] Pt via ambulance
--- NOTE | 2025-04-25 13:07 | W.PN.URO.CBU ---
Today's Communication / Plan
-
PO treatment course for Proteus UTI on discharge
Will need outpatient F/U for preop visit in 1-2 weeks to schedule definitive stone surgery
Assessment / Plan
-
Proteus cUTI
Obstructing distal right ureteral stone
Pyocystis
Post Op Day:
04/23: s/p cysto/bladder irrigation + right RGP/stent placement
UA 40-50 WBCs, +RBCs, many bacteria
UCx Proteus mirabilis
BCx NG
Diagnosis
-
Date of Service: April 25, 2025
-
Patient Diagnosis:
Proteus cUTI
Obstructing distal right ureteral stone
Pyocystis
Post Op Day:
04/23: s/p cysto/bladder irrigation + right RGP/stent placement
Subjective
-
Tolerating diet.
Denies F/C.
Voiding w/o difficulty.
Objective
-
Vital Signs
Temp Pulse Resp BP Pulse Ox
98.0 F 61 16 104/50 96
04/25/25 11:49 04/25/25 11:49 04/25/25 11:49 04/25/25 11:49 04/25/25 11:49
Intake and Output
04/24/25 04/25/25 04/26/25
06:59 06:59 06:59
Intake Total 780 / 780 1200 / 1200
Output Total
Balance 780 / 780 1175 / 1175
Intake:
Oral fluids 480 / 480 1200 / 1200
IV fluids (Total) 300 / 300
Normosol 300 / 300
Output:
Liquid stool amount
Colostomy
Other:
How many times incontinent 1
SMALL amount urine
How many times incontinent 2
MODERATE amount urine
How many times incontinent 1 1
SATURATED amount urine
Number of unmeasured liquid
stools
Colostomy 50
Laboratory Results
04/25/25 08:15
04/25/25 08:15
Physical Exam
-
General - well developed, well nourished, no acute distress
Abdomen - soft, non-tender, no CVAT
Skin - warm & dry with no rash
Neuro - AOx3, no motor deficits
Extremities - no clubbing, no cyanosis, no edema
Care Review
Data Reviewed
Discussed with: Hospitalist and Family
CT Scan: Report Pers Reviewed and Image Pers Reviewed
Total Time Spent with Patient (in minutes): 15
--- NOTE | 2025-04-25 13:13 | W.PN.HOSP.TC ---
Addendum entered and electronically signed by Milan Cohen DO 04/28/25 10:59:
CDI: Septic shock secondary to UTI, upon arrival to the hospital required Levophed for hypotension not improving with IV fluids, along with diagnosis of UTI. Septic shock ruled in by the presence of sepsis and circulatory shock
Original Note:
Today's Communication/Plan
-
Discharge home today on PO Antibiotics
Follow up in 2 weeks with urologist
Assessment / Plan
Assessment / Plan
Assessment:
Septic shock secondary to Urinary tract infection
-UA Micro- Klebsiella
-To be discharged home
- Convert IV Abx to Oral; Cefedenir 300mg PO bid
-Bp is stabilized
-Discussed with his sister Nevaeh
Nephrolithiasis
- CT abd/pelv: 5 mm calculus within the distal right ureter with minimal right hydronephrosis and hydroureter.
- Had RGP stent placed and bladder irrigation
-For outpatient Urology fu in 2 weeks
Hx of ASCVD (CAD, PVD, hx of CVA with asphasia, weakness)
Hx of Essential HTN
- Continue aspirin/Statin
- Hx of dysphagia -
-Speech Therapy evaluation appreciated. IDDSI 6 diet
Type 2 DM
- diet controlled
- SSI coverage
- A1c: 5.2
hx of PE
HLD - statin
Anxiety/depression
- continue home psych meds
BPH - continue meds
Dispo- Back to [facility]
Anticipated Discharge: Today
Subjective/Interval History
-
Date of Service: April 25, 2025
DPO Day 3 R ureteral stent and bladder irrigation for obstructing distal right ureteral stone.
Patient seen.
Nil complains
Objective Data
-
Labs:
Laboratory Results
04/25/25
08:15
WBC 5.0
Hgb 11.7 L
Hct 35.2 L
Plt Count 97 L
Sodium 141
Potassium 4.6
Chloride 116 H
Carbon Dioxide 21 L
BUN 30 H
Creatinine 0.9
Glucose 100 H
Calcium 8.4
Vital Signs:
Vital Signs
Temp Pulse Resp BP Pulse Ox
98.0 F 61 16 104/50 96
04/25/25 11:49 04/25/25 11:49 04/25/25 11:49 04/25/25 11:49 04/25/25 11:49
I&O
04/24/25 04/25/25 04/26/25
06:59 06:59 06:59
Intake Total 780 / 780 1200 / 1200
Output Total
Balance 780 / 780 1175 / 1175
Review of Systems
-
Constitutional: Reports No Symptoms
EENT: Reports No Symptoms Reported
Respiratory: Reports No Symptoms
Cardiac: Reports No Symptoms
Physical Exam
-
General: Well Developed and Well Nourished
HEENT: Normocephalic and Atraumatic
Respiratory: Clear to Auscultation
Cardiac: Regular Rhythm and S1/S2
GI: Soft and Nondistended
Musculoskeletal: Edema, Left Lower Extrem (Dependent edema)
Psych: Calm
Data Reviewed
-
Labs: Labs Reviewed by me, Discussed with Physician and Discussed with Family
[2025-04-25] MEDS: OMNICEF 300 MG PO (13:19)
[2025-04-25] MEDS: ATIVAN 0.5 MG PO (14:54)
--- NOTE | 2025-04-25 15:04 | PTCARENOTE ---
Pt becoming tearful and anxious. Talking excitedly, asking if he was in a coma and if he was going to . 0.5mg PO Ativan given. Called Ray Figueroa and updated ALLIE Lazo. Will continue to monitor.
--- NOTE | 2025-04-25 18:13 | W.DCSUMMARY ---
Documented by User: Tisha Patel MD, Resident 04/25/25 19:02
Discharge Summary
Discharge Data
Date of Admission: 04/22/25
Date of Discharge: 04/25/25
-
Pending Results: No
Hospital Course
Discharging Physician : Tisha Patel MD, Noel
Disposition : [facility], [facility]
Primary care physician :
Principal Discharge diagnosis :
Septic shock secondary to Urinary tract infection
Nephrolithiasis
Chronic Discharge diagnosis :
Coronary Artery disease
Peripheral vascular disease
Pulmonary embolism
Non insulin dependent Diabetic mellitus
Hyperlipidemia
Coronary vascular disease
Essential hypertension
Hospital Course :
A 79-year-old man with a past medical history of coronary artery disease peripheral vascular disease pulmonary embolism non-insulin diabetic dependent diabetes mellitus and hypertensive hyperlipidemia who presented to [facility] ED 04/22/2025 with altered
mental status and facial droop
En route to the hospital he was noted to have significant hypotension 64/40 and was commenced on IV fluids and norepinephrine at the rate of 0.05 into
On presentation there was left-sided residual weakness, GCS was 6 with.
He was subsequently admitted and the following problems were addressed
#Septic shock secondary to urinary tract infection. Pyocystis
-Urinalysis leukocyte esterase 3+ white blood cells 40-50
-Urine culture grew Proteus
- IV cefepime 2000 mg IV Q8H
- To be converted to p.o. cefdinir
#Nephrolithiasis,
-Abdominal CT 04/22/2025 showed right ureteral stones
-Right ureteral stenting and bladder irrigation done 04/23/2025
Following clinical improvement he was discharged back home to [facility] on p.o. antibiotics
Follow-up with his urologist in 2 weeks
Important imaging findings :
5 mm calculus within the distal right ureter with minimal right hydronephrosis and hydroureter.
2. 9 mm calculus within the upper pole of the left kidney. There is mild left hydronephrosis and hydroureter with no obstructing calculi identified.
3. Moderate pericardial effusion, similar compared to prior CT.
4. 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
Discharge Plan
-
Patient Disposition: [facility]
Discharge Diagnosis/Procedures: Septic shock secondary to Urinary tract infection
Nephrolithiasis
Condition: Fair
Diet: Chop all food
Additional Diets: IDDSI 6 diet, soft and bite sized
Activity: As tolerated
Driving Restrictions: As prior to admission
Blood Work: BMP and CBC in 5 days
Activity Restrictions/Additional Instructions:
Schedule appointment with family doctor within 1 week of discharge from
Referrals:
[facility] [Outside, Family Practice]
Mgady Pacheco MD [Active, Urology] - in one to two weeks
UNKNOWN - PT NOT,INTERVIEWE [Family Provider]
Additional Discharge Medication Instructions: Take cefdinir 300 mg every 12 hours for 10 more days after discharge
Prescriptions:
New
cefdinir 300 mg Capsule
300 mg PO Q12 Qty: 20 0RF
Continued
buspirone 5 mg Tablet
5 mg PO TID
atorvastatin [Lipitor] 80 mg Tablet
80 mg PO QPM
acetaminophen [Tylenol] 325 mg Tablet
650 mg PO Q4HPRN PRN (Reason: MILD PAIN)
ibuprofen 800 mg Tablet
800 mg PO [id number] PRN (Reason: ARTHRITIC PAIN)
melatonin 3 mg Tablet
3 mg PO HS
tramadol 50 mg Tablet
50 mg PO BIDPRN PRN (Reason: MODERATE PAIN)
lorazepam 0.5 mg Tablet
0.5 mg PO Q6HPRN PRN (Reason: ANXIETY)
magnesium hydroxide [Milk of Magnesia] 400 mg/5 mL Suspension
2,400 mg PO DAILYPRN PRN (Reason: IF NO BM BY 3RD DAY)
ascorbic acid (vitamin C) [Vitamin C] 500 mg Tablet
500 mg PO BID
tamsulosin [Flomax] 0.4 mg Capsule
0.4 mg PO DAILY
bisacodyl [Dulcolax (bisacodyl)] 10 mg Suppository
10 mg CO DAILYPRN PRN (Reason: IF NO BM AFTR MOM)
Fleet Enema 19-7 gram/118 mL Enema
118 ml CO [id number] PRN (Reason: IF NO BM AFTR DULOLCAX)
aspirin 81 mg Tablet,Chewable
81 mg PO DAILY
gabapentin 100 mg Capsule
100 mg PO BID
finasteride 5 mg Tablet
5 mg PO HS
loratadine [Claritin] 10 mg Tablet
10 mg PO DAILY
duloxetine 60 mg Capsule,Delayed Release(Dr/Ec)
60 mg PO DAILY
lactulose 10 gram/15 mL Solution
20 g PO HS
omega-3 fatty acids-fish oil 684-1,200 mg Capsule,Delayed Release(Dr/Ec)
1 cap PO DAILY
cholecalciferol (vitamin D3) [Vitamin D3] 50 mcg (2,000 unit) Tablet
50 mcg PO DAILY
Discharge Orders:
Discharge Patient (As Directed); Ordered 04/25/25
Ordered By: Tisha Patel
Discharge Date and Time
Discharge Date/Time: 04/25/25 15:41
Print Language: LAO

Documented by User: Milan Cohen DO 04/26/25 09:21
Discharge Summary
Discharge Data
Date of Admission: 04/22/25
Date of Discharge: 04/25/25
Total time spent discharging patient (in min): 35
Discharge Plan
-
Patient Disposition: [facility]
Discharge Diagnosis/Procedures: Septic shock secondary to Urinary tract infection
Nephrolithiasis
Condition: Fair
Diet: Chop all food
Additional Diets: IDDSI 6 diet, soft and bite sized
Activity: As tolerated
Driving Restrictions: As prior to admission
Blood Work: BMP and CBC in 5 days
Activity Restrictions/Additional Instructions:
Schedule appointment with family doctor within 1 week of discharge from
Referrals:
[facility] [Outside, Family Practice]
Magdy Pacheco MD [Active, Urology] - in one to two weeks
UNKNOWN - PT NOT,INTERVIEWE [Family Provider]
Additional Discharge Medication Instructions: Take cefdinir 300 mg every 12 hours for 10 more days after discharge
Prescriptions:
New
cefdinir 300 mg Capsule
300 mg PO Q12 Qty: 20 0RF
Continued
buspirone 5 mg Tablet
5 mg PO TID
atorvastatin [Lipitor] 80 mg Tablet
80 mg PO QPM
acetaminophen [Tylenol] 325 mg Tablet
650 mg PO Q4HPRN PRN (Reason: MILD PAIN)
ibuprofen 800 mg Tablet
800 mg PO [id number] PRN (Reason: ARTHRITIC PAIN)
melatonin 3 mg Tablet
3 mg PO HS
tramadol 50 mg Tablet
50 mg PO BIDPRN PRN (Reason: MODERATE PAIN)
lorazepam 0.5 mg Tablet
0.5 mg PO Q6HPRN PRN (Reason: ANXIETY)
magnesium hydroxide [Milk of Magnesia] 400 mg/5 mL Suspension
2,400 mg PO DAILYPRN PRN (Reason: IF NO BM BY 3RD DAY)
ascorbic acid (vitamin C) [Vitamin C] 500 mg Tablet
500 mg PO BID
tamsulosin [Flomax] 0.4 mg Capsule
0.4 mg PO DAILY
bisacodyl [Dulcolax (bisacodyl)] 10 mg Suppository
10 mg CO DAILYPRN PRN (Reason: IF NO BM AFTR MOM)
Fleet Enema 19-7 gram/118 mL Enema
118 ml CO [id number] PRN (Reason: IF NO BM AFTR DULOLCAX)
aspirin 81 mg Tablet,Chewable
81 mg PO DAILY
gabapentin 100 mg Capsule
100 mg PO BID
finasteride 5 mg Tablet
5 mg PO HS
loratadine [Claritin] 10 mg Tablet
10 mg PO DAILY
duloxetine 60 mg Capsule,Delayed Release(Dr/Ec)
60 mg PO DAILY
lactulose 10 gram/15 mL Solution
20 g PO HS
omega-3 fatty acids-fish oil 684-1,200 mg Capsule,Delayed Release(Dr/Ec)
1 cap PO DAILY
cholecalciferol (vitamin D3) [Vitamin D3] 50 mcg (2,000 unit) Tablet
50 mcg PO DAILY
Discharge Orders:
Discharge Patient (As Directed); Ordered 04/25/25
Ordered By: Tisha Patel
Discharge Date and Time
Discharge Date/Time: 04/25/25 15:41
Print Language: LAO
--- NOTE | 2025-04-26 15:05 | PN.CDI ---
CDI
- -
CDI:
Physician Documentation Request
Admit Date: 04/22/25 12:53
Dear Doctor Amanda,
04/25 Hospitalist PN: 'Septic shock secondary to Urinary tract infection'
Laboratory Tests
04/22/25 04/23/25
10:13 06:01
WBC 6.8 4.5 L
04/22/25
10:35 04/22/25
18:00 04/23/25
07:34
Temp 98.1 F 97.6 F 97.9 F
04/22/25
10:09 04/22/25
10:35 04/22/25
11:15
Pulse 59 50 57
04/22/25
10:09 04/22/25
10:30 04/22/25
10:48
Resp Rate 19 19 13
The purpose of this query is not to question medical judgement, but to ensure the accuracy of the conditions reported for your patient.
There is either a lack of clinical support for this condition in the current medical record, or there is a lack of recognized standard criteria to support the condition.
Sepsis
- Systemic manifestations of infection, with 2 or more SIRS criteria which include:
- Fever >100.9 degrees F or hypothermia < 96.8 degrees F
- Leukocytosis - WBC > 12,000 or leukopenia - WBC < 4,000 or > 10% bands
- Tachycardia > 90 beats per minute
- Tachypnea - RR > 20 breaths per minute or PaCO2 , 32mmHg
Source: [employer] Manual 2013
The request is for one of the following:
- Additional documentation to support the condition. Indicate if this is in lieu of what may be considered standard criteria, and/or support why the standard criteria may not be present for this patient.
- A more appropriate diagnosis, reflecting the patient's condition
- Sepsis remains a known or suspected condition for this patient and is further supported by (include additional documentation in the medical record)
- Sepsis has been ruled out and a more appropriate diagnosis for this patient's condition is .
- Other (please specify)
- Unable to determine
Use of terms such as suspected, likely, concern for, or probable (associated with a specific diagnosis that is being evaluated, monitored, or treated as if it exists) are acceptable and can be coded in the inpatient setting, when documented at the
time of discharge.
Thank you,
Jewels Leblanc RN, BSN
CDI Specialist
Available via [employer] text
Please use your independent medical judgment in providing your response.
== END 2025-04-25 15:41 | DRG 853 ==
LOC: 3 WEST ACU 12:53
PROVIDERS: Radiology Diagnostic Radiology; ADMITTING PHYSICIAN Internal Medicine; ATTENDING PHYSICIAN Internal Medicine; EMERGENCY PHYSICIAN Emergency Medicine; OTHER PHYSICIAN Surgery
PROC: 0T768DZ Dilation of Right Ureter with Intraluminal Device, Via Natural or Artificial Opening Endoscopic (ICD-10-PCS; 2025-04-23)
PROC: 3E1K88Z Irrigation of Genitourinary Tract using Irrigating Substance, Via Natural or Artificial Opening Endoscopic (ICD-10-PCS; 2025-04-23)
PROC: BT1D1ZZ Fluoroscopy of Right Kidney, Ureter and Bladder using Low Osmolar Contrast (ICD-10-PCS; 2025-04-23)
PROC: 0T9B8ZZ Drainage of Bladder, Via Natural or Artificial Opening Endoscopic (ICD-10-PCS; 2025-04-23)
DX: A41.59 Other Gram-negative sepsis (principal); R57.1 Hypovolemic shock; R65.21 Severe sepsis with septic shock; N13.6 Pyonephrosis; I31.39 Other pericardial effusion (noninflammatory); R29.810 Facial weakness; I25.10 Atherosclerotic heart disease of native coronary artery without angina pectoris; E11.51 Type 2 diabetes mellitus with diabetic peripheral angiopathy without gangrene; K43.5 Parastomal hernia without obstruction or gangrene; E78.5 Hyperlipidemia, unspecified; F32.A Depression, unspecified; F41.9 Anxiety disorder, unspecified; N40.0 Benign prostatic hyperplasia without lower urinary tract symptoms; I10 Essential (primary) hypertension; Z66 Do not resuscitate; Z93.3 Colostomy status; Z79.82 Long term (current) use of aspirin; Z86.711 Personal history of pulmonary embolism; Z86.73 Personal history of transient ischemic attack (TIA), and cerebral infarction without residual deficits; Z11.52 Encounter for screening for COVID-19
CPT/HCPCS: 71045; 74176; 74420; 76000; 80048; 80053; 81003; 81015; 82962; 83036; 83605; 83735; 83880; 84484; 85025; 86803; 87040; 87070; 87077; 87086; 87186; 87502; 87811; 92610; 93005; 93922; 96361; 96365; 96366; 96375; 99291; C2617

== ENCOUNTER → 2025-05-26 09:17 | Outpatient (REF) | payer MEDICARE, MEDICAID, OTHER, SELFPAY | LOC: RAD 09:17 | PROVIDERS: ATTENDING PHYSICIAN Surgery Vascular Surgery | DX: I87.1 Compression of vein (principal) | CPT/HCPCS: 93971; 93978 ==

== ENCOUNTER 2025-07-11 06:26 | Day surgery (SDC) | payer MEDICARE, OTHER, SELFPAY ==
[2025-07-11] VITALS (7 sets, daily range): BP systolic 96–140; BP diastolic 51–75; BMI 33.3
[2025-07-11] MEDS: NORMOSOL-R/PLASMALYTE-A 1000 IV (11:08)
[2025-07-11 11:11] LABS: Glucose - Point of Care 99 mg/dl (70-99)
[2025-07-11] MEDS: TYLENOL ORAL SOLUTION 650 MG PO (15:15)
[2025-07-17 16:40] LABS: Stone Analysis Mass 76 mg
== END 2025-07-11 15:55 ==
LOC: SDS 06:26
PROVIDERS: ATTENDING PHYSICIAN Surgery
DX: N20.1 Calculus of ureter (principal); Z98.890 Other specified postprocedural states; Z87.440 Personal history of urinary (tract) infections
CPT/HCPCS: 52352; 74018; 76000; 82365; 82962; C1769